=== PATIENT | female | born 1950 | race Caucasian/White ===

== ENCOUNTER 2018-03-25 00:04 | Emergency (ER) | payer OTHER, BC ==
[~2018-03-25] VITALS: Ht 162.6 cm; Wt 93.0 kg
--- NOTE | 2018-03-25 00:04 | NUR ---
PT SAEID ALS TO ER BED 11
[2018-03-25 00:05] VITALS: BP 151/77
--- NOTE | 2018-03-25 00:05 | NUR ---
67/F BIBA WITH FAMILY, C/O DYSPNEA AND SOB, WORSENING THESE PAST FEW DAYS; PT REPORTS NONPRODUCTIVE COUGH X1 YEAR, WORSENING THESE PAST FEW DAYS. SKIN IS INTACT, PINK/WARM/DRY; AAOX4, PERRL, WITH EVEN AND STEADY GAIT; EXPIRATORY WHEEZES BL; HR EVEN AND REGULAR, BL PERIPHERAL PULSES PRESENT; BS ACTIVE X4, NO TENDERNESS TO PALPATION; PT DENIES ANY FEVER, CP, N/V/D AT THIS TIME; PT STATES 0/10 PAIN AT THIS TIME; PATIENT POSITIONED FOR COMFORT; HOB ELEVATED; BEDRAILS UP X2; BED DOWN.
[2018-03-25] MEDS ORDERED: methylPREDNISolone SS 125 MG/2 ML VIAL IVP ONE (00:35)
[2018-03-25] MEDS ORDERED: MAG SULF 2000 MG/WATER PREMIX 50 ML IV ONE (00:35)
[2018-03-25] MEDS ORDERED: NACL 0.9% 500 ML IV ONE (00:35)
[2018-03-25] MEDS ORDERED: ALBUTEROL SULFATE/IPRATROPIU 3 ML SOL IH ONE (00:35)
[2018-03-25 01:29] LABS: BASOPHILS # (AUTO) 0.2 K/uL (0.00-0.22); BASOPHILS % (AUTO) 2.9 % (0.0-2.0); EOSINOPHILS # (AUTO) 0.3 K/uL (0-0.4); EOSINOPHILS % (AUTO) 4.3 % (0.0-4.0); HEMOGLOBIN 13.6 g/dL (12.0-16.0); LYMPHOCYTES # (AUTO) 1.6 K/uL (2.5-16.5); LYMPHOCYTES % (AUTO) 21.5 % (20.5-51.1); MEAN CORPUSCULAR HEMOGLOBIN 29 pg (27-31); MEAN CORPUSCULAR HGB CONC 32 g/dL (33-37); MEAN CORPUSCULAR VOLUME 89.5 fL (80-94); MONOCYTES # (AUTO) 0.4 K/uL (0.8-1.0); MONOCYTES % (AUTO) 5.8 % (1.7-9.3); NEUTROPHILS # (AUTO) 4.9 K/uL (1.8-7.7); NEUTROPHILS % (AUTO) 65.5 % (42.2-75.2); PLATELET COUNT (AUTO) 232 K/uL (140-450); RED CELL DISTRIBUTION WIDTH 17.3 % (11.6-13.7); WHITE BLOOD COUNT (AUTO) 7.4 K/uL (4.8-10.8)
[2018-03-25 01:45] LABS: ANION GAP 12.8 (8-16); CARBON DIOXIDE 29.5 mmol/L (21-32); CREATININE 1.1 mg/dL (0.6-1.3); POTASSIUM 3.3 mmol/L (3.5-5.1)
[2018-03-25 01:52] LABS: ALBUMIN 3.7 g/dL (3.4-5.0); TOTAL BILIRUBIN 0.5 mg/dL (0.0-1.0)
[2018-03-25] MEDS ORDERED: NACL 0.9% 1,500 ML IV ONE (02:00)
--- NOTE | 2018-03-25 02:00 | NUR ---
Patient appears to be resting comfortably in bed. Vital Signs within normal limits. Respirations even and unlabored.
[2018-03-25 03:51] VITALS: BP 132/77
== END 2018-03-25 03:51 | disposition home or self-care (01) ==
LOC: MED 00:04
DX: J44.1 Chronic obstructive pulmonary disease with (acute) exacerbation (principal)
CPT/HCPCS: 36415; 36600; 71045; 80053; 82803; 85025; 87040; 93005; 94640; 96365; 96366; 96375; 99285; J2930; J3475; J7030; J7620